=== PATIENT | female | born 1965 | race Caucasian/White ===

== ENCOUNTER 2018-01-02 18:55 | Emergency (ER) | payer OTHER ==
--- NOTE | 2018-01-02 20:36 | EDPHYS ---
Physician Documentation [facility] Name: Saeid Villafuerte Age: 52 yrs Sex: Female : 1965 Arrival Date: 01/02/2018 Time: 18:57 Bed 7 Private MD: Alcides Lopez ED Physician Kelly Carnes HPI: 01/02 19:57 This 52 yrs old Female presents to ER via Ambulatory with complaints of kav Cough, Congestion. 20:31 The patient or guardian reports cough, described as moderate, with productive sputum, kav that is green. Onset: The symptoms/episode began/occurred acutely, 1 week(s) ago. Severity of symptoms: At their worst the symptoms were moderate, just prior to arrival. Modifying factors: The symptoms are alleviated by nothing, the symptoms are aggravated by nothing. Associated signs and symptoms: Pertinent positives: sore throat, Pertinent negatives: chest pain, diarrhea, ear ache, fever, nausea, rhinorrhea, vomiting. The patient has experienced a previous episode, approximately 1 months ago. The patient has not recently seen a physician. pmhx: thyroid cancer. 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 - Social history:: Smoking status: Patient/guardian denies using tobacco. - Family history:: not pertinent. - Hospitalizations: : No recent hospitalization is reported. - History obtained from: friend. ROS: 20:33 Constitutional: Negative for fever, chills, and weight loss, Eyes: Negative for injury, kav pain, redness, and discharge, Neck: Negative for injury, pain, and swelling, Cardiovascular: Negative for chest pain, palpitations, and edema, Abdomen/GI: Negative for abdominal pain, nausea, vomiting, diarrhea, and constipation, Back: Negative for injury and pain, : Negative for injury, bleeding, discharge, and swelling, MS/Extremity: Negative for injury and deformity, Skin: Negative for injury, rash, and discoloration, Neuro: Negative for headache, weakness, numbness, tingling, and seizure, Psych: Negative for depression, anxiety, suicide ideation, homicidal ideation, and hallucinations, Allergy/Immunology: Negative for hives, rash, and allergies, Endocrine: Negative for neck swelling, polydipsia, polyuria, polyphagia, and marked weight changes, Hematologic/Lymphatic: Negative for swollen nodes, abnormal bleeding, and unusual bruising. 20:33 ENT: Positive for sore throat, Negative for ear pain, nasal discharge, difficulty swallowing. Exam: 20:33 Constitutional: This is a well developed, well nourished patient who is awake, alert, kav and in no acute distress. Head/Face: Normocephalic, atraumatic. Eyes: Pupils equal round and reactive to light, extra-ocular motions intact. Lids and lashes normal. Conjunctiva and sclera are non-icteric and not injected. Cornea within normal limits. Periorbital areas with no swelling, redness, or edema. Neck: Trachea midline, no thyromegaly or masses palpated, and no cervical lymphadenopathy. Supple, full range of motion without nuchal rigidity, or vertebral point tenderness. No Meningismus. Chest/axilla: Normal chest wall appearance and motion. Nontender with no deformity. No lesions are appreciated. Cardiovascular: Regular rate and rhythm with a normal S1 and S2. No gallops, murmurs, or rubs. Normal PMI, no JVD. No pulse deficits. Abdomen/GI: Soft, non-tender, with normal bowel sounds. No distension or tympany. No guarding or rebound. No evidence of tenderness throughout. Back: No spinal tenderness. No costovertebral tenderness. Full range of motion. Skin: Warm, dry with normal turgor. Normal color with no rashes, no lesions, and no evidence of cellulitis. MS/ Extremity: Pulses equal, no cyanosis. Neurovascular intact. Full, normal range of motion. Neuro: Awake and alert, GCS 15, oriented to person, place, time, and situation. Cranial nerves II-XII grossly intact. Motor strength 5/5 in all extremities. Sensory grossly intact. Cerebellar exam normal. Normal gait. Psych: Awake, alert, with orientation to person, place and time. Behavior, mood, and affect are within normal limits. 20:33 ENT: Nose: Turbinates: are swollen bilaterally, Posterior pharynx: erythema, that is mild. Vital Signs: 19:00 BP 138 / 92; Pulse 106; Resp 19; Temp 99.2; Pulse Ox 97% on R/A; Weight 85.28 kg; la1 Height 5 ft. 2 in. (157.48 cm); 20:13 BP 168 / 98; Pulse 99; Resp 16; Pulse Ox 96% ; bp 19:00 Body Mass Index 34.39 (85.28 kg, 157.48 cm) la1 MDM: 20:33 Data reviewed: vital signs, nurses notes. ka 20:35 Medical screening is not applicable. ka Administered Medications: No medications were administered Disposition: 01/03 01:30 Co-signature as Attending Physician, Kelly Carnes MD. ma2 Disposition: 01/02/18 20:35 Discharged to Home. Impression: Acute upper respiratory infection, unspecified. - Condition is Stable. - Discharge Instructions: Upper Respiratory Infection, Adult. - Prescriptions for Zithromax Z- Noe 250 mg Oral Tablet - take 1 tablet by ORAL route as directed for 5 days Day 1 - take two (2) tablets one time. Day 2, 3, 4 , 5 take one (1) tablet once daily.; 6 tablet. Medrol (Noe) 4 mg Oral Tablets, Dose Pack - take 1 tablet by ORAL route as directed - follow package instructions; 1 packet. benzonatate 100 mg Oral Capsule - take 1 capsule by ORAL route 3 times per day; 30 capsule. - Medication Reconciliation Form, Thank You Letter, Antibiotic Education, Prescription Opioid Use form. - Follow up: Alcides Lopez MD; When: 2 - 3 days; Reason: If symptoms return, Recheck today's complaints, Continuance of care, Re-evaluation by your physician. - Problem is new. - Symptoms are unchanged. Signatures: Diamante Ewing FNP FNP kav Attema, Lee RN RN la1 Alcides Cruz, RN RN bp Kelly Carnes MD MD ma2
--- NOTE | 2018-01-02 20:36 | ER ---
Nurse's Notes [facility] Name: Saeid Villafuerte Age: 52 yrs Sex: Female : 1965 Arrival Date: 01/02/2018 Time: 18:57 Bed 7 Private MD: Alcides Lopez Diagnosis: Acute upper respiratory infection, unspecified Presentation: 01/02 18:59 Presenting complaint: Patient states: intermittent cough and SOB for the last week. Pt la1 denies fevers at home. Transition of care: patient was not received from another setting of care. Resp Distress? No respiratory distress is noted at this time. Onset of symptoms was January 02, 2018. Initial Sepsis Screen: Does the patient meet any 2 criteria? No. Patient's initial sepsis screen is negative. Does the patient have a suspected source of infection? No. Patient's initial sepsis screen is negative. Care prior to arrival: None. 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 - Social history:: Smoking status: Patient/guardian denies using tobacco. - Family history:: not pertinent. - Hospitalizations: : No recent hospitalization is reported. - History obtained from: friend. Screenin:07 Abuse screen: Denies threats or abuse. Denies injuries from another. Nutritional bp screening: No deficits noted. Tuberculosis screening: No symptoms or risk factors identified. Fall Risk None identified. Assessment: 20:09 General: Appears in no apparent distress. comfortable, obese, Behavior is calm, bp cooperative, appropriate for age. Pain: Complains of pain in face. Neuro: Level of Consciousness is awake, alert, obeys commands, Oriented to person, place, time, situation, Appropriate for age. Cardiovascular: Capillary refill < 3 seconds Patient's skin is warm and dry. Rhythm is sinus tachycardia. Respiratory: Airway is patent Respiratory effort is even, unlabored, Respiratory pattern is regular, symmetrical, Breath sounds are clear bilaterally. GI: No deficits noted. : No signs and/or symptoms were reported regarding the genitourinary system. EENT: Reports nasal congestion. Derm: No deficits noted. Musculoskeletal: Circulation, motion, and sensation intact. Range of motion: intact in all extremities. 20:58 Reassessment: PT D/C HOME AMBULATORY WITH FAMILY, DX WITH ACUTE URI. bp Vital Signs: 19:00 BP 138 / 92; Pulse 106; Resp 19; Temp 99.2; Pulse Ox 97% on R/A; Weight 85.28 kg; la1 Height 5 ft. 2 in. (157.48 cm); 20:13 BP 168 / 98; Pulse 99; Resp 16; Pulse Ox 96% ; bp 19:00 Body Mass Index 34.39 (85.28 kg, 157.48 cm) la1 ED Course: 18:57 Patient arrived in ED. as 18:57 Alcides Lopez MD is Private Physician. as 19:00 Triage completed. la1 19:00 Arm band placed on left wrist. la1 19:57 Diamante Ewing FNP is PHCP. kav 19:57 Kelly Carnes MD is Attending Physician. kav 20:07 Alcides Cruz, RN is Primary Nurse. bp 20:07 Patient has correct armband on for positive identification. Bed in low position. Call bp light in reach. Side rails up X2. 20:35 Alcides Lopez MD is Referral Physician. kav 20:59 No provider procedures requiring assistance completed. Patient did not have IV access bp during this emergency room visit. Administered Medications: No medications were administered Outcome: 20:35 Discharge ordered by MD. kav 20:59 Discharged to home ambulatory, with family. bp 20:59 Condition: stable 20:59 Discharge instructions given to patient, Instructed on discharge instructions, follow up and referral plans. medication usage, Demonstrated understanding of instructions, follow-up care, medications, Prescriptions given X 3. 21:00 Patient left the ED. bp Signatures: Diamante Ewing FNP FNP kav Martinez, Amelia as Attema, Lee, RN RN la Alcides Cruz, DANITA RN bp
== END 2018-01-02 21:00 | disposition home or self-care (01) ==
LOC: ER 18:55
DX: J06.9 Acute upper respiratory infection, unspecified (principal); Z88.0 Allergy status to penicillin
CPT/HCPCS: 99284